=== PATIENT | female | born 1970 | race African-American/Black ===

== ENCOUNTER → 2017-02-02 | Outpatient (CLI) | payer OTHER ==
--- NOTE | 2017-02-02 22:22 | MR ---
EXAMINATION TYPE: MR knee RT wo con DATE OF EXAM: 02/02/2017 9:17 AM COMPARISON: Plain film November HISTORY: Right knee pain TECHNIQUE: Multiplanar, multisequence imaging of the right knee is performed without IV contrast. FINDINGS: MEDIAL MENISCUS: Anterior and posterior horns are intact without tear. LATERAL MENISCUS: Anterior and posterior horns are intact without tear. CRUCIATE LIGAMENTS: The anterior and posterior cruciate ligaments are intact and unremarkable. COLLATERAL LIGAMENTS: The medial collateral ligament and lateral collateral ligament complex are inta ct and unremarkable. EXTENSOR MECHANISM: Visualized quadriceps and patellar tendons are intact. EFFUSION: No significant suprapatellar joint effusion. POPLITEAL CYST: Small semimembranosus gastrocnemius cyst measures only approximately 13 x 21 mm in g reatest dimension. 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 OTHER: No additional significant abnormality is appreciated. 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 No surrounding bone marrow edema or cortical destruction.
== END | disposition home or self-care (01) ==
LOC: RADMRIMAIN 08:18
PROVIDERS: ATTEND Family Medicine
DX: M25.561 Pain in right knee (principal)

== ENCOUNTER → 2025-04-16 | Outpatient (CLI) | payer MEDICARE ==
--- NOTE | 2025-04-16 10:31 | MM ---
Reason for Exam: Screening (asymptomatic). Last mammogram was performed 2 year(s) and 3 month(s) ago. Patient History: Menarche at age 13. First Full-Term at age 17. Postmenopausal. Risk Values: Veronica 5 year model risk: 1.3%. NCI Lifetime model risk: 8.0%. Prior Study Comparison: 02/10/2013 Bilateral Diagnostic Mammogram, [facility]. 10/15/2014 Bilateral Screening Mammogram, [facility]. 01/04/2023 Bilateral Screening Mammogram, [facility]. Tissue Density: The breasts are heterogeneously dense, which may obscure small masses. Findings: Analyzed By CAD. There are benign-appearing calcifications. There is a nodular density breast approximately 5 cm from the nipple. Overall Assessment: Incomplete: need additional imaging evaluation, BI-RAD 0 Management: Special View Mammogram of the right breast. . Patient should continue monthly self-breast exams. A clinical breast exam by your physician is recommended on an annual basis. This exam should not preclude additional follow-up of suspicious palpable abnormalities. Note on Veronica scores and lifetime risk: 1. A Veronica score greater than 3% is considered moderate risk. If this is the case, consider specialist referral to assess eligibility for a risk reducing agent. 2. If overall lifetime risk for the development of breast cancer is 20% or higher, the patient may qualify for future screening with alternating mammogram and breast MRI. [facility], , 04/16/2025 10:29 AM. Electronically signed and approved by: Moncho Balbuena M.D. Radiologis
== END | disposition home or self-care (01) ==
LOC: RADMAMWWP 09:54
PROVIDERS: ATTEND Family Medicine
DX: Z12.31 Encounter for screening mammogram for malignant neoplasm of breast (principal); R92.333 Mammographic heterogeneous density, bilateral breasts; Z78.0 Asymptomatic menopausal state
CPT/HCPCS: 77063; 77067

== ENCOUNTER → 2025-05-01 | Outpatient (CLI) | payer MEDICARE ==
--- NOTE | 2025-05-01 12:11 | MM ---
Reason for Exam: Additional evaluation requested from abnormal screening. Last screening mammogram was performed less than 1 month ago. Patient History: Menarche at age 13. First Full-Term at age 17. Postmenopausal. Risk Values: Veronica 5 year model risk: 1.3%. NCI Lifetime model risk: 8.0%. Prior Study Comparison: 10/15/2014 Bilateral Screening Mammogram, [facility]. 01/04/2023 Bilateral Screening Mammogram, [facility]. 04/16/2025 Bilateral MG 3D screening mammo w/cad, [facility]. Tissue Density: Right: The breasts are heterogeneously dense, which may obscure small masses. Findings: Analyzed By CAD. The questioned centrally located asymmetric density disperses on spot 3-D suggesting superimposition shadow. No significant change. Overall Assessment: Benign, BI-RAD 2 Management: Screening Mammogram of both breasts in 1 year. Results were given to the patient verbally at the time of exam. Patient should continue monthly self-breast exams. A clinical breast exam by your physician is recommended on an annual basis. This exam should not preclude additional follow-up of suspicious palpable abnormalities. Note on Veronica scores and lifetime risk: 1. A Veronica score greater than 3% is considered moderate risk. If this is the case, consider specialist referral to assess eligibility for a risk reducing agent. 2. If overall lifetime risk for the development of breast cancer is 20% or higher, the patient may qualify for future screening with alternating mammogram and breast MRI. [facility], , 05/01/2025 12:08 PM. Electronically signed and approved by: Sarah Akers M.D. Radiologist
== END | disposition home or self-care (01) ==
LOC: RADMAMWWP 11:41
PROVIDERS: ATTEND Family Medicine
DX: R92.8 Other abnormal and inconclusive findings on diagnostic imaging of breast (principal); R92.331 Mammographic heterogeneous density, right breast; Z78.0 Asymptomatic menopausal state
CPT/HCPCS: 77065; G0279; 77061